=== PATIENT | male | born 1930 | race Caucasian/White ===

== ENCOUNTER 2017-08-05 16:36 | Emergency (ER) | payer MEDICARE ==
[~2017-08-05] VITALS: Ht 182.9 cm; Wt 75.0 kg
[~2017-08-05 16:36] MED LIST: ACET-66 PO
[2017-08-05] MEDS ORDERED: PROPARACAINE HCL 0.5% 15 ML OPHTHALMIC SOLUTION OS ONE (17:45)
[2017-08-05] MEDS ORDERED: FLUORESCEIN SODIUM 1 MG STRIP OS ONE (17:45)
[2017-08-05 19:21] VITALS: BP 158/88
== END 2017-08-05 19:23 | disposition home or self-care (01) ==
LOC: EMS 16:39
DX: S05.02XA Injury of conjunctiva and corneal abrasion without foreign body, left eye, initial encounter (principal); H10.89 Other conjunctivitis; X58.XXXA Exposure to other specified factors, initial encounter; Y93.E9 Activity, other interior property and clothing maintenance; Y92.89 Other specified places as the place of occurrence of the external cause; Y99.8 Other external cause status
CPT/HCPCS: 99173; 99283